=== PATIENT | female | born 1990 | race African-American/Black ===

== ENCOUNTER 2017-09-07 12:11 | Emergency (ER) | payer BC, OTHER ==
[~2017-09-07] VITALS: Ht 162.6 cm; Wt 77.1 kg
[~2017-09-07 12:11] MED LIST: BACTRIM DS TAB1 EACH PO; BIRTH CONTROL PILL; IBUPROFEN 600600 M1 PO; KEFLEX500 MG PO; NORCO 5-325 TA1 EACH PO
[2017-09-07 12:40] LABS: ABSOLUTE NEUTROPHILS 4.5 thou/uL (1.4-8.2); BASOPHILS 0.5 % (0.0-2.0); EOSINOPHILS 0.7 % (0.0-3.0); HEMATOCRIT 40.3 % (37.0-47.0); HEMOGLOBIN 13.4 gm/dL (12.0-15.0); LYMPHOCYTES 22.3 % (24.0-44.0); MCH 29.2 pg (26.0-34.0); MCHC 33.3 g/dL (28.0-37.0); MCV 87.7 fL (80.0-100.0); MONOCYTES 5.6 % (1.0-8.0); PLATELET COUNT 271 thou/uL (150-400); POLYS 70.9 % (36.0-66.0); RBC 4.59 mil/uL (4.20-5.00); WBC 6.4 thou/uL (4.0-11.0)
[2017-09-07 12:41] LABS: MANUAL DIFF NO
[2017-09-07 12:43] LABS: CREATININE 0.7 mg/dL (0.6-1.0); POTASSIUM 3.9 mmol/L (3.5-5.1)
[2017-09-07] MEDS ORDERED: PHENERGAN 25 MG25 M1 PO (12:47)
[2017-09-07] MEDS ORDERED: ZOFRAN ODT4 MG PO (12:47)
[2017-09-07 12:50] LABS: ALBUMIN 3.8 g/dL (3.4-5.0); DIRECT BILIRUBIN 0.1 mg/dL (<0.1-0.3); TOTAL BILIRUBIN 0.3 mg/dL (<0.1-1.0); TOTAL PROTEIN 7.6 g/dL (6.4-8.2)
[2017-09-07 13:01] VITALS: BP 95/49
== END 2017-09-07 13:02 | disposition home or self-care (01) ==
LOC: ER 12:11
PROVIDERS: Emergency Medicine
DX: R11.2 Nausea with vomiting, unspecified (principal)

== ENCOUNTER 2017-10-23 19:56 | Emergency (ER) | payer BC, OTHER ==
[~2017-10-23] VITALS: Ht 162.6 cm; Wt 77.1 kg
[~2017-10-23 19:56] MED LIST changes: +PHENERGAN 25 MG25 M1 PO; +ZOFRAN ODT4 MG PO
== END 2017-10-23 21:12 | disposition home or self-care (01) ==
LOC: ER 19:56
DX: O26.891 Other specified pregnancy related conditions, first trimester (principal); R23.8 Other skin changes; Z3A.00 Weeks of gestation of pregnancy not specified

== ENCOUNTER 2020-04-20 17:42 | Emergency (ER) | payer BC ==
[~2020-04-20] VITALS: Ht 162.6 cm; Wt 82.6 kg
[2020-04-20] MEDS ORDERED: PROAIR HFA8.5 GM INH (21:07)
[2020-04-20 21:16] VITALS: BP 127/71
== END 2020-04-20 21:29 | disposition home or self-care (01) ==
LOC: ER 17:42
DX: R06.00 Dyspnea, unspecified (principal); Z20.828 Contact with and (suspected) exposure to other viral communicable diseases; R05 Cough